=== PATIENT | male | born 1995 | race African-American/Black ===

== ENCOUNTER 2018-04-02 01:44 | Emergency (ER) ==
[2018-04-02 02:01] VITALS: BP 99/62; TEMP 97.1; BMI 20.3
--- NOTE | 2018-04-02 02:33 | ED.PDOC ---
General ED Provider: Dr. BERENICE RICE Chief Complaint: Non-specific Complaint Stated Complaint: rash on the hads and feeling of mites on the finger nails. Time Seen by Physician: 02:10 Mode of Arrival: Walk-In Information Source: Patient Exam Limitations: No limitations Nursing and Triage Documentation Reviewed and Agree: Yes Reviewed sepsis parameters & appropriate labs ordered?: No System Inflammatory Response Syndrome: Not Applicable Sepsis Protocol: For patient's 13 years and over: Temp is 96.8 and below OR 101 and greater Pulse >90 BPM Resp >20/minute Acutely Altered Mental Status Are patient's symptoms suggestive of a new infection, such as: -Pneumonia -Skin, Soft Tissue -Endocarditis -UTI -Bone, Joint Infection -Implantable Device -Acute Abdominal Infection -Wound Infection -Meningitis -Blood Stream Catheter Infection -Unknown System Inflammatory Response Syndrome: Not Applicable Skin Complaint Exam - Skin Rash/Itching Complaint/Exam Onset/Duration: 2 days Symptoms Are: Still present Initial Severity: Moderate Current Severity: Moderate Location: tips of finger and anhand Potential Exposures: Reports: Mites, Scabies Prior Treatment: some otc oil Aggravating: Reports: Showering, Heat Alleviating: Reports: None Associated Signs and Symptoms: Denies: Difficulty breathing, Fever, Chills Skin Findings: Present: Pustules (mild on the hand and forarms) Differential Diagnoses: Scabies Review of Systems - Review Of Systems Constitutional: Reports: No symptoms Eyes: Reports: No symptoms Ears, Nose, Mouth, Throat: Reports: No symptoms Respiratory: Reports: No symptoms Cardiac: Reports: No symptoms GI: Reports: No symptoms : Reports: No symptoms Musculoskeletal: Reports: No symptoms Skin: Reports: Rash Neurological: Reports: No symptoms Endocrine: Reports: No symptoms Hematologic/Lymphatic: Reports: No symptoms All Other Systems: Reviewed and Negative Past Medical History - Past Medical History Previously Healthy: Yes Endocrine: Reports: None Cardiovascular: Reports: None Respiratory: Reports: None Hematological: Reports: None Gastrointestinal: Reports: None Genitourinary: Reports: None Neuro/Psych: Reports: None Musculoskeletal: Reports: None Cancer: Reports: None - Surgical History General Surgical History: Reports: None - Family History Family History: Reports: None - Social History Smoking Status: Current every day smoker, Light tobacco smoker Hx Substance Use: No (marijuana) Alcohol Screening: None - Immunizations Tetanus Shot up to Date: Yes Physical Exam - Physical Exam Appearance: Well-appearing, Ill-appearing Neck: Supple Respiratory: Airway patent, Breath sounds clear, Breath sounds equal, Respirations nonlabored Musculoskeletal: Normal strength, ROM intact, No edema Skin: Warm, Dry Neurological: Sensation intact, Alert, Oriented Psychiatric: Anxious Critical Care Note - Critical Care Note Total Time (mins): 0 Course - Course Vital Signs: Temp Pulse Resp BP Pulse Ox 04/02/18 01:47 97.1 F L 60 20 99/62 97 Departure - Departure Time of Disposition: 02:31 Disposition: HOME SELF-CARE Discharge Problem: Scabies infestation Instructions: Scabies (ED) Condition: Fair Pt referred to PMD for follow-up: No (out of town ) IPMP verified?: No (no Narcotics given ) Additional Instructions: use medications as prescribed. Trim you finger nails down. Follow up with you PCP in 3 days Prescriptions: Hydroxyzine HCl [Atarax] 25 mg PO TID PRN #25 tablet PRN Reason: Allergy Symptoms Permethrin [Nix Lice Treatment] 1 applic TP ONCE #80 applic Allergies/Adverse Reactions: Allergies No Known Allergies Allergy (Unverified 04/02/18 01:57) Home Medications: Ambulatory Orders Hydroxyzine HCl [Atarax] 25 mg PO TID PRN #25 tablet 04/02/18 Permethrin [Nix Lice Treatment] 1 applic TP ONCE #80 applic 04/02/18 Disposition Discussed With: Patient
== END 2018-04-02 02:48 | disposition home or self-care (01) ==
LOC: ED 01:44
DX: B86 Scabies (principal); F17.210 Nicotine dependence, cigarettes, uncomplicated
CPT/HCPCS: 99282